=== PATIENT | male | born 1970 | race American Indian/Alaskan Native ===

== ENCOUNTER 2018-03-22 13:51 | Emergency (ER) | payer MEDICAID, OTHER, SELFPAY ==
[2018-03-22 13:57] VITALS: BP 160/113; PULSE 69; RESP 18; TEMP 36.2; O2SAT 96
--- NOTE | 2018-03-22 15:11 | ED.ABDPAIN ---
HPI - Abdominal Pain <GLADIS Aquino - Last Filed: 03/22/18 22:11> General Chief Complaint: Abdominal Pain Stated Complaint: VOMITING, BACK HURTS Time Seen by Provider: 03/22/18 15:11 Source: patient Mode of arrival: ambulatory Limitations: no limitations History of Present Illness HPI narrative: 47-year-old healthy male that is a nonsmoker here for complaint of pain to his left lower quadrant over the past couple of days. He denies any urinary symptoms. He states his last bowel movement was yesterday and was unremarkable. He has had some nausea vomiting. No fevers or chills. Otherwise positive p.o. intake. Denies any trauma to the abdomen. No flank pain. He denies any stressors or years of his discomfort. He denies any other concerns or complaints at this time. MD complaint: abdominal pain Related Data Previous Rx's Medication Instructions Recorded ondansetron 4 mg PO Q6-8H PRN #10 tab 03/22/18 Allergies Allergy/AdvReac Type Severity Reaction Status Date / Time ibuprofen [From MOTRIN] Allergy Mild HIVES Verified 03/22/18 15:43 ketorolac [From TORADOL] Allergy Mild HIVES Verified 03/22/18 15:43 Review of Systems <GLADIS Aquino - Last Filed: 03/22/18 22:11> Constitutional Denies chills, Denies fever(s), Denies lethargy and Denies weakness Eyes Denies change in vision, Denies eye discharge, Denies irritation and Denies loss of vision ENT Ears, Nose, Mouth, and Throat: Denies change in voice, Denies neck pain and Denies sore throat Cardiovascular Denies chest pain, Denies irregular heart rhythm, Denies lightheadedness, Denies palpitations, Denies dyspnea, Denies dyspnea on exertion and Denies orthopnea Respiratory Denies cough, Denies dyspnea, Denies dyspnea on exertion and Denies wheezing Gastrointestinal Gastrointestinal: Reports abdominal pain, Denies change in bowel habits, Denies diarrhea, Reports nausea and Reports vomiting Genitourinary Denies hematuria, Denies flank pain, Denies urinary incontinence and Denies urinary urgency Musculoskeletal Denies neck pain Integumentary/Breasts Denies pruritus, Denies erythema, Denies rash and Denies wounds Neurologic Denies confusion, Denies loss of vision and Denies weakness Psychiatric Denies anxiety, Denies confusion, Denies depression, Denies homicidal ideation and Denies suicidal ideation Endocrine Denies palpitations Hematologic/Lymphatic Denies easy bruising Allergic/Immunologic Denies wheezing Exam <GLADIS Aquino - Last Filed: 03/22/18 22:11> Initial Vital Signs Initial Vital Signs: Vital Signs Temperature 97.2 F L 03/22/18 13:57 Pulse Rate 69 03/22/18 13:57 Respiratory Rate 18 03/22/18 13:57 Blood Pressure 160/113 H 03/22/18 13:57 Pulse Oximetry 96 03/22/18 13:57 Const General: cooperative and well developed Nutritional Appearance: well nourished Orientation: alert, awake, oriented x3 and not confused HENMT Mouth: oral mucosae normal and moist mucous membranes Eyes Conjunctivae: conjunctivae normal Sclera: sclerae normal Pupils: PERRL EOM: EOM intact bilaterally Resp Effort & Inspection: normal respiratory effort, able to speak in complete sentences, no respiratory distress and no use of accessory muscles Auscultation: clear to auscultation bilaterally, no rales, no rhonchi and no wheezes Cardio Rate: regular rate Rhythm: regular rhythm Heart Sounds: no click, no gallops, no murmurs and no rubs Pulses: normal peripheral pulses GI Inspection: non-distended Palpation: soft, no hepatosplenomegaly, No guarding, No pulsatile mass and tender ( Tenderness left lower quadrant) Auscultation: normal bowel sounds General: No CVA tenderness Skin General: no rashes or lesions noted, No jaundice and No petechiae Neuro General: alert, oriented x3, gait normal and no focal motor deficits Speech: speech normal <Thiago Byrd DO - Last Filed: 03/23/18 09:42> Initial Vital Signs Initial Vital Signs: Vital Signs Temperature 97.2 F L 03/22/18 13:57 Pulse Rate 69 03/22/18 13:57 Respiratory Rate 18 03/22/18 13:57 Blood Pressure 160/113 H 03/22/18 13:57 Pulse Oximetry 96 03/22/18 13:57 Course <GLADIS Aquino - Last Filed: 03/22/18 22:11> Orders Ordered: Discontinued Medications Hydromorphone HCl (Dilaudid) 1 mg IV NOW ONE Stop: 03/22/18 15:34 Last Admin: 03/22/18 15:43 Dose: 1 mg Sodium Chloride (Normal Saline 0.9%) 1,000 mls @ 1,000 mls/hr IV BOLUS ONE Stop: 03/22/18 16:32 Last Infusion: 03/22/18 17:24 Dose: 0 mls/hr Admin: 03/22/18 15:43 Dose: 1,000 mls/hr Ondansetron HCl (Zofran) 4 mg IV NOW ONE Stop: 03/22/18 15:34 Last Admin: 03/22/18 15:43 Dose: 4 mg Vital Signs - 8 hr 03/22/18 16:00 03/22/18 17:00 03/22/18 17:51 Pulse Rate 69 82 85 Respiratory Rate 11 L 13 12 Blood Pressure 153/86 H Blood Pressure [Right Arm] 124/88 125/106 H Pulse Oximetry 97 99 96 <Thiago Byrd DO - Last Filed: 03/23/18 09:42> Orders Ordered: Discontinued Medications Hydromorphone HCl (Dilaudid) 1 mg IV NOW ONE Stop: 03/22/18 15:34 Last Admin: 03/22/18 15:43 Dose: 1 mg Sodium Chloride (Normal Saline 0.9%) 1,000 mls @ 1,000 mls/hr IV BOLUS ONE Stop: 03/22/18 16:32 Last Infusion: 03/22/18 17:24 Dose: 0 mls/hr Admin: 03/22/18 15:43 Dose: 1,000 mls/hr Ondansetron HCl (Zofran) 4 mg IV NOW ONE Stop: 03/22/18 15:34 Last Admin: 03/22/18 15:43 Dose: 4 mg Vital Signs - 8 hr 03/22/18 16:00 03/22/18 17:00 03/22/18 17:51 Pulse Rate 69 82 85 Respiratory Rate 11 L 13 12 Blood Pressure 153/86 H Blood Pressure [Right Arm] 124/88 125/106 H Pulse Oximetry 97 99 96 MDM - Abdominal Pain <GLADIS Aquino - Last Filed: 03/22/18 22:11> Lab Data Result diagrams: 03/22/18 15:10 03/22/18 15:10 Lab Results 03/22/18 03/22/18 03/22/18 Range/Units 15:10 15:10 15:10 WBC 9.1 (4.5-11.0) X10^3/uL RBC 5.31 (4.5-5.9) X10^6/uL Hgb 14.7 (13.5-17.5) g/dL Hct 44.5 (41-53) % MCV 83.7 (80-100) fL MCH 27.6 (26-34) PG MCHC 33.0 (30-36) % RDW 13.6 (11.6-14.8) % Plt Count 318 (150-400) X10^3/uL Neut % (Auto) 79.6 H (50-75) % Lymph % (Auto) 12.3 L (25-40) % [place] % (Auto) 5.0 (3-14) % Eos % (Auto) 2.6 (2-4) % Baso % (Auto) 0.5 (0-2) % Neut # (Auto) 7200 H (3247-8162) /uL PT 11.4 (10.1-12.7) SECONDS INR 1.0 (0.9-1.3) APTT 29 (26.4-36.2) SECONDS Sodium 146 H (137-145) mmol/L Potassium 4.2 (3.4-5.1) mmol/L Chloride 106 (98-107) mmol/L Carbon Dioxide 26 (22-32) mmol/L BUN 10 (9-20) mg/dL Creatinine 0.80 (0.66-1.25) mg/dL Estimated GFR > 60.0 (>60) mL/min BUN/Creatinine Ratio 12.5 (6-22) Glucose 107 H (70-100) mg/dL Calcium 8.9 (8.4-10.2) mg/dL Total Bilirubin 0.4 (0.2-1.3) mg/dL AST 24 (17-59) IU/L ALT 33 (21-72) IU/L Alkaline Phosphatase 88 (38-126) U/L Total Protein 8.0 (6.3-8.2) g/dL Albumin 4.4 (3.5-5.0) g/dL Globulin 3.6 (1.7-4.1) g/dL Albumin/Globulin Ratio 1.2 (1.0-2.8) Lipase 105 (23-300) U/L Point of care testing: Urine Dip Bedside Urine Glucose Negative Bedside Urine Bilirubin - Negative Bedside Urine Ketone - Negative Urine Specific [place] 1.010 Bedside Urine Occult Blood - Negative Bedside Urine pH 8.0 Bedside Urine Protein - Negative Bedside Urine Urobilinogen - Negative Bedside Urine Nitrite - Negative Bedside Urine Leukocytes - Negative Esterase Imaging Data CT scan - abdomen: Radiologist's impression: [facility] [place] [id number] CT Scan Report Signed Patient: Asif Fletcher [facility]#: [id number] : 5Acct:[id number] Age/Sex: 62 / MDate of Service: 03/22/18 Loc: ED Accession Number: [id number] Procedure: CT abdomen pelvis w con Ordering Provider: Chucho James PROCEDURE: CT ABDOMEN PELVIS W CON INDICATIONS: History metastatic lung cancer here for rlq pain TECHNIQUE: After the administration of oral and intravenous contrast, 5 mm thick sections acquired from the diaphragms to the symphysis. 5 mm thick coronal and sagittal reformats were performed. For radiation dose reduction, the following was used: automated exposure control, adjustment of mA and/or kV according to patient size. COMPARISON: [facility], CT, CHEST/ABD/PEL WITH CONTRAST, 06/29/2017, 11:57. [facility], CT, CHEST/ABDOMEN WITH CONTRAST, 06/26/2016, 13:13. [facility], CT, CHEST/ABDOMEN WITH CONTRAST, 02/11/2016, 9:15. [facility], CT, ABDOMEN/PELVIS WITH CONTRAST, 10/22/2015, 15:23. FINDINGS: Image quality: Diagnostic. ABDOMEN: Lung bases: Mild areas of parenchymal scarring are seen within the right middle lobe/right lung base, similar to previous examinations, but less pronounced on the current study. Heart size is normal. Solid organs: The liver, spleen, adrenals, kidneys, and pancreas appear to be unchanged. A simple appearing left renal cyst is again noted. Peritoneum and bowel: There is a small hiatal hernia. Otherwise, the stomach is unremarkable. The small bowel loops are nondilated. Moderate to large amount of residual stool is identified within the colon. The appendix is not definitely seen. No free fluid or loculated fluid collection is evident. There is no free air. Nodes and vessels: No retroperitoneal or mesenteric adenopathy. Aorta and inferior vena cava are normal in caliber. There is atherosclerosis of the lower abdominal aorta and iliac arteries. No occlusions or aneurysms. Bones: There is a new Schmorl's node versus superior endplate compression deformity involving the L3 vertebral body, which was not present on the examination from 06/29/17. Otherwise, the osseous structures of the abdomen are intact. PELVIS: Genitourinary: Moderate thickening of the urinary bladder wall is present. The prostate gland is not appear to be significantly enlarged. However, there are coarse calcifications present within the prostate itself. Miscellaneous: No inguinal hernias or adenopathy. No free fluid or loculated fluid collections are evident. There is no free air. Bones: No suspicious bony lesions. No acute pelvic fractures are evident. They're mild to moderate degenerative changes of the pelvic joints. IMPRESSION: 1. No evidence of metastatic disease to the abdomen or pelvis. No lymphadenopathy. 2. Thickening of the urinary bladder wall may be related to chronic bladder obstruction. Please correlate clinically to exclude cystitis. 3. Large amount of residual stool throughout the colon may represent constipation. 4. Small hiatal hernia. 5. New compression deformity versus Schmorl's node involving the superior L3 endplate. The need for better characterization utilizing MRI may be determined clinically. Dictated by: Suresh Savage M.D. on 03/22/2018 at 15:00 Approved by: Suresh Savage M.D. on 03/22/2018 at 15:09 ECG Data Interpretation: EKG shows sinus bradycardia with no ST elevation or depression. No ectopy. Ventricular rate of 57. Pr interval 144. QRS duration 94. QTC 381. MDM Narrative Medical decision making narrative: CBC and Chem panel were obtained were unremarkable. Lipase was negative. CT of the abdomen was obtained was negative for any acute findings. Urinalysis was negative for urinary tract infection. Will treat for a viral illness with Zofran to help with nausea vomiting [id number] Tylenol as needed for discomfort. Plenty of fluids and rest. Follow up with primary care provider later this week. For any worsening symptoms return to the emergency room. <Thiago Byrd, - Last Filed: 03/23/18 09:42> Lab Data Lab Results 03/22/18 03/22/1818 Range/Units 15:10 15:10 15:10 WBC 9.1 (4.5-11.0) X10^3/uL RBC 5.31 (4.5-5.9) X10^6/uL Hgb 14.7 (13.5-17.5) g/dL Hct 44.5 (41-53) % MCV 83.7 (80-100) fL MCH 27.6 (26-34) PG MCHC 33.0 (30-36) % RDW 13.6 (11.6-14.8) % Plt Count 318 (150-400) X10^3/uL Neut % (Auto) 79.6 H (50-75) % Lymph % (Auto) 12.3 L (25-40) % [place] % (Auto) 5.0 (3-14) % Eos % (Auto) 2.6 (2-4) % Baso % (Auto) 0.5 (0-2) % Neut # (Auto) 7200 H (6914-8472) /uL PT 11.4 (10.1-12.7) SECONDS INR 1.0 (0.9-1.3) APTT 29 (26.4-36.2) SECONDS Sodium 146 H (137-145) mmol/L Potassium 4.2 (3.4-5.1) mmol/L Chloride 106 (98-107) mmol/L Carbon Dioxide 26 (22-32) mmol/L BUN 10 (9-20) mg/dL Creatinine 0.80 (0.66-1.25) mg/dL Estimated GFR > 60.0 (>60) mL/min BUN/Creatinine Ratio 12.5 (6-22) Glucose 107 H (70-100) mg/dL Calcium 8.9 (8.4-10.2) mg/dL Total Bilirubin 0.4 (0.2-1.3) mg/dL AST 24 (17-59) IU/L ALT 33 (21-72) IU/L Alkaline Phosphatase 88 (38-126) U/L Total Protein 8.0 (6.3-8.2) g/dL Albumin 4.4 (3.5-5.0) g/dL Globulin 3.6 (1.7-4.1) g/dL Albumin/Globulin Ratio 1.2 (1.0-2.8) Lipase 105 (23-300) U/L Point of care testing: Urine Dip Bedside Urine Glucose Negative Bedside Urine Bilirubin - Negative Bedside Urine Ketone - Negative Urine Specific [place] 1.010 Bedside Urine Occult Blood - Negative Bedside Urine pH 8.0 Bedside Urine Protein - Negative Bedside Urine Urobilinogen - Negative Bedside Urine Nitrite - Negative Bedside Urine Leukocytes - Negative Esterase Discharge Plan Departure Patient Disposition: Home Clinical Impression: Abdominal pain, acute Discharge Date/Time: 03/22/18 17:52 Interventions: ED Discharge Assessment Last Done: 03/22/18 17:51 Instructions: DI for Abdominal Pain-Adult Activity Restrictions/Additional Instructions: laboratory results and imaging today were unremarkable. Signs and symptoms presents as a viral illness. Use [id number] Tylenol as needed for any discomfort. Zofran is prescribed to help with nausea use as directed. Follow up with her primary care provider next week for re-evaluation. Plenty of fluids and rest. For any worsening symptoms return to the emergency room. Prescriptions: New ondansetron 4 mg tablet,disintegrating 4 mg PO Q6-8H PRN (Reason: nausea and vomiting) Qty: 10 RF: 0 Referrals: Brooklyn Scott PA-C [Primary Care Provider] - <Thiago Byrd DO - Last Filed: 03/23/18 09:42> Cosign ED Attending Bryantature Attestation: I was immediately available in the department for consultation. Documentation has been reviewed. I agree with assessment and plan.
[2018-03-22 15:18] LABS: Add Manual Diff / Slide Review NO; Basophils Percent Auto 0.5 % (0-2); Eosinophils Percent Auto 2.6 % (2-4); Hematocrit 44.5 % (41-53); Hemoglobin 14.7 g/dL (13.5-17.5); Lymphocytes Percent Auto 12.3 % (25-40); Mean Corpuscular Hemoglobin 27.6 PG (26-34); Mean Corpuscular Volume 83.7 fL (80-100); Neutrophils Absolute Auto 7200 /uL (1500-7000); Neutrophils Percent Auto 79.6 % (50-75); Platelet Count 318 X10^3/uL (150-400); Red Blood Cell Count 5.31 X10^6/uL (4.5-5.9); Red Cell Distribution Width 13.6 % (11.6-14.8); White Blood Cell Count 9.1 X10^3/uL (4.5-11.0)
[2018-03-22 15:32] LABS: Prothrombin Time 11.4 SECONDS (10.1-12.7)
--- NOTE | 2018-03-22 15:33 | DI.CT.S_ITS ---
PROCEDURE: CT ABDOMEN PELVIS W CON INDICATIONS: left lower quadrant pain TECHNIQUE: After the administration of intravenous contrast, 5 mm thick sections acquired from the diaphragm to the symphysis. 5 mm coronal and sagittal reformats were acquired. For radiation dose reduction, the following was used: automated exposure control, adjustment of mA and/or kV according to patient size. COMPARISON: [facility], CT, ABDOMEN/PELVIS WITH CONTRAST, 02/09/2013, 12:11. FINDINGS: Image quality: Excellent. ABDOMEN: Lung bases: Lung bases are clear. Heart size is normal. Solid organs: Liver is normal in size and enhancement. Hepatic steatosis is seen. No discrete hepatic lesion is noted. Gallbladder is within normal limits. Biliary system is non dilated. Pancreas enhances normally. Spleen is normal in size and enhancement. No adrenal nodules. Kidneys demonstrate normal size and enhancement, without hydronephrosis. Peritoneum and bowel: Small to moderate size hiatal hernia is seen. There is no evidence of bowel obstruction. No gross abnormal bowel wall thickening or mesenteric fat stranding is seen. No free fluid or free air. Descending colon and sigmoid colon diverticulosis is seen with no CT evidence of acute diverticulitis. Appendix is visualized and is within normal limits. Nodes and vessels: No retroperitoneal or mesenteric adenopathy by size criteria. Aorta and inferior vena cava are normal in size. Miscellaneous: No ventral hernias. PELVIS: Genitourinary: There is mild diffuse bladder wall thickening. No discrete bladder wall mass. Miscellaneous: No inguinal hernias or adenopathy. Bones: No suspicious bony lesions. No vertebral body compression fractures. IMPRESSION: 1. Normal appendix. Sigmoid and descending colon diverticulosis with no CT evidence of acute diverticulitis. No bowel obstruction. No free fluid or free air. Small to moderate size hiatal hernia. 2. No renal stone hydronephrosis. Mild nonspecific bladder wall thickening, which could represent cystitis versus underdistention. 3. Hepatic steatosis. Dictated by: Nicholas Galaviz M.D. on 03/22/2018 at 16:06 Approved by: Nicholas Galaviz M.D. on 03/22/2018 at 16:16
[2018-03-22 15:35] LABS: PTT Partial Thromboplastin Tim 29 SECONDS (26.4-36.2)
[2018-03-22 15:36] LABS: Alanine Aminotransferase 33 IU/L (21-72); Albumin 4.4 g/dL (3.5-5.0); Albumin Globulin Ratio 1.2 (1.0-2.8); Alkaline Phosphatase 88 U/L (38-126); Aspartate Aminotransferase 24 IU/L (17-59); BUN Creatinine Ratio 12.5 (6-22); Bilirubin Total 0.4 mg/dL (0.2-1.3); Blood Urea Nitrogen 10 mg/dL (9-20); Calcium 8.9 mg/dL (8.4-10.2); Carbon Dioxide 26 mmol/L (22-32); Chloride 106 mmol/L (98-107); Estimated Glomerular Filt Rate > 60.0 mL/min (>60); Globulin 3.6 g/dL (1.7-4.1); Glucose 107 mg/dL (70-100); HEMOLYSIS < 15 (0-50); Lipase 105 U/L (23-300); Potassium 4.2 mmol/L (3.4-5.1); Sodium 146 mmol/L (137-145)
[2018-03-22] MEDS: HYDROMORPHONE 1 MG INJ IV (15:43)
[2018-03-22] MEDS: ONDANSETRON 4 MG/2 ML INJ IV (15:43)
[2018-03-22] MEDS: SODIUM CHLORIDE 0.9% 1,000 ML 1000 ML IV (15:43)
[2018-03-22 16:00] VITALS: BP 124/88; PULSE 69; RESP 11; O2SAT 97
[2018-03-22 17:00] VITALS: BP 125/106; PULSE 82; RESP 13; O2SAT 99
[2018-03-22 17:51] VITALS: BP 153/86; PULSE 85; RESP 12; O2SAT 96
== END 2018-03-22 17:52 | disposition home or self-care (01) ==
PROVIDERS: Emergency Provider Nurse Practitioner Family; PCP Physician Assistant
DX: R10.9 Unspecified abdominal pain (principal)
CPT/HCPCS: 36591; 74177; 80053; 81003; 83690; 85025; 85610; 85730; 93005; 93010; 96361; 96374; 96375; 99283; 99285; J1170; J2405; Q9967

== ENCOUNTER 2021-04-13 10:30 | Emergency (ER) | payer MEDICAID, OTHER, SELFPAY ==
[2021-04-13 11:23] VITALS: BP 176/96; PULSE 55; RESP 18; TEMP 36.5; O2SAT 99; BMI 34.4
--- NOTE | 2021-04-13 11:56 | ED_ITS ---
HPI - Weakness <GLADIS Maloney - Last Filed: 04/13/21 16:15> General Chief complaint: Weakness Stated complaint: Vomiting, chills, weakness Time Seen by Provider: 04/13/21 10:40 Source: patient Mode of arrival: Wheelchair History of Present Illness HPI Narrative: 30-year-old male presents to the emergency department for nausea and vomiting which started at 1:30 a.m. today. Patient reports that he was using fentanyl, and other oral opioids until last week when he was transition to Suboxone. He denies having a fever, reports that he is vaccinated x2 and pending his booster tomorrow. His sister was at his house in she does a positive for COVID so he would not another COVID test as well. Patient denies any diarrhea, shortness of breath, chest pain, difficulty breathing, runny nose, cough, sore throat or other respiratory symptom. Patient denies any blood in his emesis. Related Data Previous Rx's Medication Instructions Recorded ondansetron 4 mg disintegrating 4 mg PO Q6-8H PRN #10 tab 03/22/18 tablet ondansetron 4 mg disintegrating 4 mg PO Q8H PRN #10 tab 04/13/21 tablet Allergies Allergy/AdvReac Type Severity Reaction Status Date / Time ibuprofen [From MOTRIN] Allergy Mild HIVES Verified 03/22/18 15:43 ketorolac [From TORADOL] Allergy Mild HIVES Verified 03/22/18 15:43 Review of Systems <GLADIS Maloney - Last Filed: 04/13/21 16:15> Review of Systems Narrative: General: denies fever, chills Head/Neck: denies headache, neck pain Eyes: denies visual changes, eye pain Cardio: denies chest pain, palpitations Respiratory: denies shortness of breath, cough GI: denies abdominal pain, endorses nausea and vomiting, denies diarrhea : denies dysuria, hematuria MSK: denies joint pain, muscle weakness Skin: denies rash, itching Neuro: denies numbness, tingling Patient History <GLADIS Maloney - Last Filed: 04/13/21 16:15> Social History Smoking Status: Never smoker Smoking Status: Never smoker Substance Use Type: marijuana Exam <GLADIS Maloney - Last Filed: 04/13/21 16:15> Narrative Exam Narrative: Independently reviewed vitals signs and nursing notes. General: Awake, alert, nontoxic, no cardiorespiratory distress Head/Neck: Atraumatic, neck full range of motion Eyes: EOMI, conjunctiva normal Nose: nares patent, no rhinorrhea Mouth/Throat: moist mucus membranes, posterior pharynx normal, no oral lesions Cardio: Regular rate and rhythm, no peripheral edema, patient does not appear dehydrated, extremities are warm, heart rate low 60s. Respiratory: respirations unlabored without wheezing, stridor, or rales. No retractions. GI: Abdomen soft, nontender to palpation MSK: Moves all extremities, neurovascularly intact Skin: Normal capillary refill, no rash Neuro: Normal speech and cognition, normal gait Initial Vital Signs Initial Vital Signs: Vital Signs Temperature 97.7 F 04/13/21 11:23 Pulse Rate 55 L 04/13/21 11:23 Respiratory Rate 18 04/13/21 11:23 Blood Pressure 176/96 H 04/13/21 11:23 Pulse Oximetry 99 04/13/21 11:23 <Thiago Byrd DO - Last Filed: 04/14/21 11:21> Initial Vital Signs Initial Vital Signs: Vital Signs Temperature 97.7 F 04/13/21 11:23 Pulse Rate 55 L 04/13/21 11:23 Respiratory Rate 18 04/13/21 11:23 Blood Pressure 176/96 H 04/13/21 11:23 Pulse Oximetry 99 04/13/21 11:23 Course <GLADIS Maloney - Last Filed: 04/13/21 16:15> Orders Ordered: Discontinued Medications Ondansetron HCl (Ondansetron 4 Mg Odt) 4 mg SL NOW ONE Stop: 04/13/21 12:05 Last Admin: 04/13/21 12:21 Dose: 4 mg Documented by: ADRYAN Vital Signs Vital signs: Vital Signs - 8 hr 04/13/21 11:23 04/13/21 13:12 Temperature 97.7 F Pulse Rate 55 L 61 Respiratory Rate 18 20 Blood Pressure 176/96 H 155/76 H Pulse Oximetry 99 97 <Thiago Byrd DO - Last Filed: 04/14/21 11:21> Orders Ordered: Discontinued Medications Ondansetron HCl (Ondansetron 4 Mg Odt) 4 mg SL NOW ONE Stop: 04/13/21 12:05 Last Admin: 04/13/21 12:21 Dose: 4 mg Documented by: ADRYAN Vital Signs Vital signs: Vital Signs - 8 hr 04/13/21 11:23 04/13/21 13:12 Temperature 97.7 F Pulse Rate 55 L 61 Respiratory Rate 18 20 Blood Pressure 176/96 H 155/76 H Pulse Oximetry 99 97 MDM - Weakness <UGO MaloneyP - Last Filed: 04/13/21 16:15> Lab Data Labs: Lab Results 04/13/21 04/13/21 Range/Units 11:30 12:29 Urine Color Yellow Urine Appearance Clear Urine pH 8.5 H (4.5-8.0) Ur Specific [place]ese 1.015 (1.000-1.035) Urine Protein Trace H (Negative) Urine Glucose (UA) Negative (Negative) g/dL Urine Ketones Negative (NEGATIVE) Urine Occult Blood Negative (Negative) Urine Nitrate Negative (Negative) Urine Bilirubin Negative (NEGATIVE) Urine Urobilinogen 0.2 (0.2) E.U./dL Ur Leukocyte Esterase Negative (NEGATIVE) Urine RBC None seen (0-5/HPF) Urine WBC 0-1/hpf (0-5/HPF) Ur Squamous Epith Cells 0-1 /hpf (0-5/HPF) Amorphous Sediment 1+ Urine Bacteria None seen (None) Urine Mucus 1+ H (Negative) Ur Culture Indicated? Cult not indicated SARS-CoV-2 (PCR) Negative (Negative) [facility] Narrative Medical decision making narrative: 50-year-old male presents to the emergency department complaining of nausea and vomiting which started last night at 1:30 a.m. patient reports that he recently transition from oral opioids including fentanyl, oxycodone and others to Suboxone 1 week ago and he has had some symptoms of withdrawal. He denies any fever, cough, illness but does endorse mild dysuria. UA was negative for infection, patient was given Zofran and tolerated p.o. afterwards without difficulty or vomiting. Patient was prescribed a short course of ODT Zofran. Patient understands to follow-up with his primary care provider and his pain medication provider if he is continuing to have these symptoms. Patient is appropriate and amenable to discharge home. Vital signs are stable on repeat examination is unremarkable. Patient has been informed of results. Patient has been given strict return to ER precautions for any new or worsening symptoms. Patient understands to follow up closely with outpatient providers as instructed. Patient understands plan and agrees to discharge home. All questions and concerns answered at this time. <Thiago Byrd, DO - Last Filed: 04/14/21 11:21> Lab Data Labs: Lab Results 04/13/21 04/13/21 Range/Units 11:30 12:29 Urine Color Yellow Urine Appearance Clear Urine pH 8.5 H (4.5-8.0) Ur Specific Reese 1.015 (1.000-1.035) Urine Protein Trace H (Negative) Urine Glucose (UA) Negative (Negative) g/dL Urine Ketones Negative (NEGATIVE) Urine Occult Blood Negative (Negative) Urine Nitrate Negative (Negative) Urine Bilirubin Negative (NEGATIVE) Urine Urobilinogen 0.2 (0.2) E.U./dL Ur Leukocyte Esterase Negative (NEGATIVE) Urine RBC None seen (0-5/HPF) Urine WBC 0-1/hpf (0-5/HPF) Ur Squamous Epith Cells 0-1 /hpf (0-5/HPF) Amorphous Sediment 1+ Urine Bacteria None seen (None) Urine Mucus 1+ H (Negative) Ur Culture Indicated? Cult not indicated SARS-CoV-2 (PCR) Negative (Negative) Discharge Plan Departure Patient Disposition: Home Clinical Impression: Withdrawal symptoms, drug or narcotic Qualifiers: Substance type: opioid Qualified Code(s): F11.23 - Opioid dependence with withdrawal Vomiting Qualifiers: Vomiting type: unspecified Vomiting Intractability: non-intractable Nausea presence: with nausea Qualified Code(s): R11.2 - Nausea with vomiting, unspecified Instructions: DI for Vomiting -- Adult Activity Restrictions/Additional Instructions: *You have been diagnosed with withdrawal symptoms most likely related to your transition from fentanyl and opioids to Suboxone. Please continue on your current regimen, please continue to stay hydrated avoid other sick contacts. Thank you for being vaccinated. Please slate picker your Zofran at [facility]. We will call you if your urine is abnormal and we will call in antibiotics if necessary. I hope you feel better soon. *What to do: *Please continue to take your regular medications as directed. [x ] New medication prescriptions sent to your pharmacy: [ [facility]] [ ] New medication written as a paper prescription [ ] No new medications given *Please follow up with your primary care provider in 2-3 days, call for an appointment. Let them know you were seen in the Emergency Department and that we ask that you be seen in follow up. We will electronically transmit a record of today's note if your PCP is in our system *If you do not have a primary care provider please contact the [facility] Resource line at [phone]. They will ask some questions about your medical history and help get you set up with a doctor in the community. *Return to Emergency Department if you should have any new, worsening or concerning symptoms, such as [fever greater than 101F, chills, worsening pain, persistent vomiting or other bothersome symptoms] Prescriptions: New ondansetron 4 mg tablet,disintegrating 4 mg PO Q8H PRN (Reason: nausea and vomiting) Qty: 10 0RF No Action ondansetron 4 mg tablet,disintegrating 4 mg PO Q6-8H PRN (Reason: nausea and vomiting) Qty: 10 0RF Referrals: Brooklyn Scott PA-C [Primary Care Provider] - <Thiago Byrd DO - Last Filed: 04/14/21 11:21> [facility] ED Attending Bryantature Attestation: I was immediately available in the department for consultation. This documentation has been reviewed and I agree with assessment and plan. Supervised by Thiago Byrd DO
[2021-04-13 12:06] LABS: COVID19 -Nasal RAPID Negative (Negative)
[2021-04-13] MEDS: ONDANSETRON 4 MG ODT SL (12:21)
[2021-04-13 12:57] LABS: Appearance Urine UA CLEAR; Bilirubin Urine UA NEGATIVE (NEGATIVE); Color Urine UA YELLOW; Glucose Urine UA NEGATIVE (Negative); Ketones Urine UA NEGATIVE (NEGATIVE); Leukocyte Esterase Urine UA NEGATIVE (NEGATIVE); Nitrite Urine UA NEGATIVE (Negative); Occult Blood Urine UA NEGATIVE (Negative); Protein Urine UA TRACE (Negative); Specific Gravity Urine UA 1.015 (1.000-1.035); Urobilinogen Urine UA 0.2 E.U./dL (0.2); pH Urine UA 8.5 (4.5-8.0)
[2021-04-13 13:05] LABS: Amorphous Sediment Urine 1+; Bacteria Urine None Seen; Culture Indicated Urine Cult Not Indicated; Mucus Urine 1+ (Negative); RBC Urine None Seen (0-5/HPF); Squamous Epithelial Cell Urine 0-1 /HPF (0-5/HPF); WBC Urine 0-1/HPF (0-5/HPF)
[2021-04-13 13:12] VITALS: BP 155/76; PULSE 61; RESP 20; O2SAT 97
== END 2021-04-13 13:22 | disposition home or self-care (01) ==
PROVIDERS: Emergency Medicine; Emergency Provider Nurse Practitioner Critical Care Medicine; PCP Physician Assistant
DX: F11.23 Opioid dependence with withdrawal (principal); R11.2 Nausea with vomiting, unspecified; Z20.822 Contact with and (suspected) exposure to COVID-19
CPT/HCPCS: 81001; 87635; 99283; C9803

== ENCOUNTER 2022-02-02 12:09 | Emergency (ER) | payer MEDICAID, OTHER, SELFPAY ==
[2022-02-02] VITALS (29 sets, daily range): BP systolic 136–190; BP diastolic 69–99; PULSE 47–88; RESP 14–50; TEMP 36.4; O2SAT 97–100; BMI 32.1
[2022-02-02] MEDS: NALOXONE 1 MG/ML SYRINGE 0.5 MG IV (12:17)
[2022-02-02] MEDS: ONDANSETRON 4 MG/2 ML INJ IV (12:21)
--- NOTE | 2022-02-02 12:37 | ED.OVERDOSE ---
HPI - Overdose General Chief Complaint: Toxicology Problem Stated Complaint: withdrawal Time Seen by Provider: 02/02/22 12:17 Source: EMS Mode of arrival: EMS History of Present Illness HPI Narrative: Patient is a 51-year-old male history of opiate and fentanyl abuse also going to [facility] presenting today what was thought to be withdrawal. Reports that he smoked Fentanyl around 4:00 a.m. and then took his Suboxone at 9:00 a.m. EMS reports that he required a sternal rub in route. He is able to answer some questions he wakes up but does drift off to sleep. Related Data Previous Rx's Medication Instructions Recorded ondansetron 4 mg disintegrating 4 mg PO Q6-8H PRN nausea and 03/22/18 tablet vomiting #10 tabs ondansetron 4 mg disintegrating 4 mg PO Q8H PRN nausea and 04/13/21 tablet vomiting #10 tabs Allergies Allergy/AdvReac Type Severity Reaction Status Date / Time ibuprofen [From MOTRIN] Allergy Mild HIVES Verified 02/02/22 12:28 ketorolac [From TORADOL] Allergy Mild HIVES Verified 02/02/22 12:28 Review of Systems Review of Systems ROS Unobtainable: All systems reviewed & are unremarkable except as noted in HPI and below Patient History Social History Smoking Status: Never smoker Smoking Status: Never smoker Substance Use Type: marijuana and painkillers Exam Initial Vital Signs Initial Vital Signs: Vital Signs Temperature 97.5 F L 02/02/22 12:20 Pulse Rate 56 L 02/02/22 12:20 Respiratory Rate 14 02/02/22 12:20 Blood Pressure 173/90 H 02/02/22 12:20 Pulse Oximetry 100 02/02/22 12:20 Oxygen Delivery Method 02/02/22 12:20 GENERAL: Drowsy 51-year-old male and in no acute distress. HEENT: Head atraumatic,EOMI, pupils reactive, face symmetric, moist mucous membranes CARDIOVASCULAR: Regular rate and rhythm without murmurs, rubs or gallops. RESPIRATORY: Breath sounds equal bilaterally, no wheezes rales or rhonchi. ABDOMEN: Soft, nontender. Normoactive bowel sounds all 4 quadrants. No guarding or rebound. EXTREMITIES: Normal range of motion, no clubbing or edema. Neurovascularly intact NEUROLOGICAL: Responsive sometimes 2 pain and sometimes to voice moving all extremities. SKIN: Warm, dry, no laceration, no petechiae, no rashes or lesions. Course Orders Ordered: ED Orders 02/02/22 12:10 Acetaminophen Stat CBC Auto Diff [Complete Blood Count AUTO DIFF] Stat CMP [Comprehensive Metabolic Panel] Stat ETOH [Ethanol (ETOH)] Stat Lactate (Lactic Acid) Stat Salicylate Stat 02/02/22 12:38 EKG-12 Lead Stat 02/02/22 12:41 CT head/brain wo con Stat 02/02/22 13:10 Urine Drug Screen, Rapid Stat 02/02/22 16:45 Consult to [facility] - Licensed Practical Nurse Clinic Nurse Stat Discontinued Medications Lorazepam (Lorazepam 2 Mg/Ml Inj) 0.5 mg IV NOW ONE Stop: 02/02/22 12:47 Last Admin: 02/02/22 12:53 Dose: 0.5 mg Documented By: NICHOLAS Lorazepam (Lorazepam 2 Mg/Ml Inj) 1 mg IV NOW ONE Stop: 02/02/22 12:55 Last Admin: 02/02/22 13:15 Dose: 1 mg Documented By: NICHOLAS(2) Metoclopramide HCl (Metoclopramide 10 Mg/2 Ml Inj) 10 mg IV NOW ONE Stop: 02/02/22 15:09 Last Admin: 02/02/22 15:18 Dose: 10 mg Documented By: LENCHO Naloxone HCl (Naloxone 1 Mg/Ml Syringe) 0.5 mg IV NOW ONE Stop: 02/02/22 12:25 Last Admin: 02/02/22 12:17 Dose: 0.5 mg Documented By: LENCHO Naloxone HCl (Naloxone 4 Mg Nasal [place]) 4 mg [facility] ONE Stop: 02/02/22 17:29 Last Admin: 02/02/22 17:32 Dose: 4 mg Documented By: NICHOLAS(2) Ondansetron HCl (Ondansetron 4 Mg/2 Ml Inj) 4 mg IV NOW ONE Stop: 02/02/22 12:18 Last Admin: 02/02/22 12:21 Dose: 4 mg Documented By: JASBIR Pantoprazole Sodium (Pantoprazole 40 Mg Vial) 40 mg IV NOW ONE Stop: 02/02/22 15:09 Last Admin: 02/02/22 15:18 Dose: 40 mg Documented By: LENCHO Vital Signs Vital signs: Vital Signs - 8 hr 02/02/22 12:20 02/02/22 13:00 02/02/22 13:27 Temperature 97.5 F L Pulse Rate 56 L 48 L 52 L Respiratory Rate 14 25 H Blood Pressure 173/90 H 173/76 H 171/90 H Pulse Oximetry 100 100 100 Oxygen Delivery Method Room Air Room Air Room Air 02/02/22 13:04 02/02/22 13:10 02/02/22 13:10 Temperature Pulse Rate 50 L 51 L Respiratory Rate Blood Pressure 165/76 H Pulse Oximetry 100 100 Oxygen Delivery Method 02/02/22 13:20 02/02/22 13:20 02/02/22 13:30 Temperature Pulse Rate 47 L 54 L Respiratory Rate 26 H Blood Pressure 171/90 H Pulse Oximetry 100 100 Oxygen Delivery Method 02/02/22 13:31 02/02/22 13:31 02/02/22 14:00 Temperature Pulse Rate 53 L 53 L Respiratory Rate Blood Pressure 177/86 H 136/90 Pulse Oximetry 99 Oxygen Delivery Method Room Air 02/02/22 13:41 02/02/22 13:41 02/02/22 13:59 Temperature Pulse Rate 57 L 57 L Respiratory Rate 24 22 Blood Pressure 182/88 H Pulse Oximetry 100 100 Oxygen Delivery Method 02/02/22 13:59 02/02/22 14:00 02/02/22 14:17 Temperature Pulse Rate 69 49 L Respiratory Rate 24 Blood Pressure 136/90 Pulse Oximetry 100 100 Oxygen Delivery Method 02/02/22 14:17 02/02/22 14:53 02/02/22 15:02 Temperature Pulse Rate 50 L 50 L Respiratory Rate Blood Pressure 190/84 H 158/79 H 170/99 H Pulse Oximetry 97 100 Oxygen Delivery Method Room Air Room Air 02/02/22 14:21 02/02/22 14:21 02/02/22 14:32 Temperature Pulse Rate 56 L Respiratory Rate Blood Pressure 190/89 H 180/85 H Pulse Oximetry 100 Oxygen Delivery Method 02/02/22 14:32 02/02/22 14:41 02/02/22 14:41 Temperature Pulse Rate 58 L 52 L Respiratory Rate Blood Pressure 148/69 H Pulse Oximetry 100 100 Oxygen Delivery Method 02/02/22 14:51 02/02/22 14:51 02/02/22 15:00 Temperature Pulse Rate 78 74 Respiratory Rate Blood Pressure 158/79 H Pulse Oximetry 99 100 Oxygen Delivery Method 02/02/22 15:01 02/02/22 15:01 02/02/22 15:30 Temperature Pulse Rate 74 55 L Respiratory Rate 25 H Blood Pressure 170/99 H Pulse Oximetry 100 99 Oxygen Delivery Method 02/02/22 15:36 02/02/22 15:36 02/02/22 15:50 Temperature Pulse Rate 76 51 L Respiratory Rate 18 Blood Pressure 174/99 H Pulse Oximetry 99 100 Oxygen Delivery Method Room Air 02/02/22 15:50 02/02/22 16:00 02/02/22 16:01 Temperature Pulse Rate 59 L 58 L Respiratory Rate 22 50 H Blood Pressure 170/79 H Pulse Oximetry 100 99 Oxygen Delivery Method 02/02/22 16:01 02/02/22 16:30 02/02/22 16:31 Temperature Pulse Rate 52 L 54 L Respiratory Rate 19 Blood Pressure 172/86 H Pulse Oximetry 100 99 Oxygen Delivery Method 02/02/22 16:31 02/02/22 17:00 02/02/22 17:03 Temperature Pulse Rate 88 Respiratory Rate Blood Pressure 149/75 H 138/76 Pulse Oximetry 100 Oxygen Delivery Method 02/02/22 17:03 Temperature Pulse Rate 66 Respiratory Rate 22 Blood Pressure Pulse Oximetry 97 Oxygen Delivery Method MDM - Overdose Lab Data Result diagrams: 02/02/22 12:10 02/02/22 12:10 Labs: Lab Results 02/02/22 02/02/22 02/02/22 Range/Units 12:10 12:10 12:10 WBC 7.5 (4.5-11.0) X10^3/uL RBC 5.03 (4.5-5.9) X10^6/uL Hgb 13.3 L (13.5-17.5) g/dL Hct 40.3 L (41-53) % MCV 80.1 (80-100) fL MCH 26.4 (26-34) PG MCHC 32.9 (30-36) % RDW 15.5 H (11.6-14.8) % Plt Count 263 (150-400) X10^3/uL Neut % (Auto) 78.2 H (50-75) % Lymph % (Auto) 13.8 L (25-40) % [place] % (Auto) 5.7 (3-14) % Eos % (Auto) 1.3 L (2-4) % Baso % (Auto) 1.0 (0-2) % Neut # (Auto) 5800 (6899-6488) /uL Lymph # (Auto) 1000 L (0072-4183) /uL [place] # (Auto) 400 (0-900) /uL Eos # (Auto) 100 (0-450) /uL Baso # (Auto) 100 (0-100) /uL Sodium 140 (137-145) mmol/L Potassium 3.4 (3.4-5.1) mmol/L Chloride 103 (98-107) mmol/L Carbon Dioxide 25 (22-32) mmol/L BUN 12 (9-20) mg/dL Creatinine 0.70 (0.66-1.25) mg/dL Estimated GFR > 60 (>60) mL/min BUN/Creatinine Ratio 17.1 (6-22) Glucose 108 H (70-100) mg/dL Lactate 1.5 (0.7-2.1) mmol/L Calcium 9.3 (8.4-10.2) mg/dL Total Bilirubin 0.5 (0.2-1.3) mg/dL AST 23 (17-59) IU/L ALT 17 (<50) IU/L Alkaline Phosphatase 92 (38-126) U/L Total Protein 8.9 H (6.3-8.2) g/dL Albumin 4.6 (3.5-5.0) g/dL Globulin 4.3 H (1.7-4.1) g/dL Albumin/Globulin Ratio 1.1 (1.0-2.8) Salicylates < 1.0 (<20) mg/dL U Opiates 300ng/mL cut (Negative) Ur Oxycodone Screen (Negative) Urine Methadone Screen (Negative) Acetaminophen < 10 (10-30) ug/mL Ur Barbiturates Screen (Negative) U Tricyclic Antidepress (Negative) Ur Phencyclidine Scrn (Negative) Ur Amphetamines Screen (Negative) U Methamphetamines Scrn (Negative) Ur MDMA Scrn (Ecstasy) (Negative) U Benzodiazepines Scrn (Negative) Urine Cocaine Screen (Negative) U Marijuana (THC) Screen (Negative) Ethyl Alcohol < 10 ( - 10) mg/dL 02/02/22 Range/Units 13:10 WBC (4.5-11.0) X10^3/uL RBC (4.5-5.9) X10^6/uL Hgb (13.5-17.5) g/dL Hct (41-53) % MCV (80-100) fL MCH (26-34) PG MCHC (30-36) % RDW (11.6-14.8) % Plt Count (150-400) X10^3/uL Neut % (Auto) (50-75) % Lymph % (Auto) (25-40) % [place] % (Auto) (3-14) % Eos % (Auto) (2-4) % Baso % (Auto) (0-2) % Neut # (Auto) (2621-4893) /uL Lymph # (Auto) (7373-6010) /uL [place] # (Auto) (0-900) /uL Eos # (Auto) (0-450) /uL Baso # (Auto) (0-100) /uL Sodium (137-145) mmol/L Potassium (3.4-5.1) mmol/L Chloride (98-107) mmol/L Carbon Dioxide (22-32) mmol/L BUN (9-20) mg/dL Creatinine (0.66-1.25) mg/dL Estimated GFR (>60) mL/min BUN/Creatinine Ratio (6-22) Glucose (70-100) mg/dL Lactate (0.7-2.1) mmol/L Calcium (8.4-10.2) mg/dL Total Bilirubin (0.2-1.3) mg/dL AST (17-59) IU/L ALT (<50) IU/L Alkaline Phosphatase (38-126) U/L Total Protein (6.3-8.2) g/dL Albumin (3.5-5.0) g/dL Globulin (1.7-4.1) g/dL Albumin/Globulin Ratio (1.0-2.8) Salicylates (<20) mg/dL U Opiates 300ng/mL cut Negative (Negative) Ur Oxycodone Screen Negative (Negative) Urine Methadone Screen Negative (Negative) Acetaminophen (10-30) ug/mL Ur Barbiturates Screen Negative (Negative) U Tricyclic Antidepress Negative (Negative) Ur Phencyclidine Scrn Negative (Negative) Ur Amphetamines Screen Negative (Negative) U Methamphetamines Scrn Negative (Negative) Ur MDMA Scrn (Ecstasy) Negative (Negative) U Benzodiazepines Scrn Negative (Negative) Urine Cocaine Screen Negative (Negative) U Marijuana (THC) Screen Positive H (Negative) Ethyl Alcohol ( - 10) mg/dL Imaging Data CT scan - head: Radiologist's Impression: [address] [address] [address] Scan Report Signed Patient: Faisal Slois MR#: [id number] : 1970 Acct:[id number] Age/Sex: 51 / M Date of Service: 02/02/22 Loc: ED Accession Number: [id number] ?? Procedure: CT head/brain wo con Ordering Provider: Karina Juarez D.O. PROCEDURE:? CT HEAD/BRAIN WO CON ? INDICATIONS:? Decreased mental status ? TECHNIQUE:? Noncontrast 4.5 mm thick angled axial sections acquired from the foramen magnum to the vertex, with coronal and sagittal reformats.? For radiation dose reduction, the following was used:? automated exposure control, adjustment of mA and/or kV according to patient size.? ? COMPARISON:? None. ? FINDINGS:? Image quality:? Excellent.? ? CSF spaces:? Basal cisterns are patent.? No extra-axial fluid collections.? Ventricles are normal in size and shape.? ? Brain:? No midline shift.? No intracranial masses or hemorrhage.? [place]-white matter interface is normal.? ? Skull and face:? Calvarium and visualized facial bones are intact, without suspicious lesions.? ? Sinuses:? Visualized sinuses and mastoids are clear.? ? IMPRESSION:? No acute finding. ? ? Dictated by: Billy Rodarte M.D. on 02/02/2022 at 14:51 ? ? Approved by: Billy Rodarte M.D. on 02/02/2022 at 14:55 ? ECG Data Interpretation: Sinus rhythm rate 48 FL interval 174 QRS 90 QTC is [address] changes T-wave inversions similar to previous dated [facility] Narrative Medical decision making narrative: Patient becoming intermittently unresponsive needing sternal rub he is given a small dose of Narcan which immediately caused him to vomit and shake. He was given Ativan to help combat the vomiting and the shaking. However hours in the emergency department he seems to have stabilized eating food. His probable opiate overdose. He is set up with [facility] he was seen by social work. At this time he is back to his baseline. Both patient and girlfriend are ready to go home. Naloxone at Discharge Patient criteria for naloxone at discharge: Already has reversal meds Discharge Plan Departure Patient Disposition: Home Clinical Impression: Opioid overdose Instructions: DI for Opioid Use Disorder, Naloxone for Opiate Overdose - [facility] Activity Restrictions/Additional Instructions: *You have been diagnosed with opiate overdose *What to do: Stop using fentanyl *Continue to take medications as directed Use Narcan if needed *Follow up with your primary care provider in 2-3 days or call [phone] *Return to ER if you should have any new, worsening or concerning symptoms Prescriptions: No Action ondansetron 4 mg tablet,disintegrating 4 mg PO Q8H PRN (Reason: nausea and vomiting) Qty: 10 0RF ondansetron 4 mg tablet,disintegrating 4 mg PO Q6-8H PRN (Reason: nausea and vomiting) Qty: 10 0RF Referrals: Brooklyn Scott PA-C [Primary Care Provider] - Visit Report Forms: Patient Portal/API
[2022-02-02 12:40] LABS: Add Manual Diff / Slide Review NO; Basophils Absolute Auto 100 /uL (0-100); Eosinophils Absolute Auto 100 /uL (0-450); Eosinophils Percent Auto 1.3 % (2-4); Hematocrit 40.3 % (41-53); Hemoglobin 13.3 g/dL (13.5-17.5); Lymphocytes Absolute Auto 1000 /uL (1100-4500); Lymphocytes Percent Auto 13.8 % (25-40); Mean Corpuscular HGB Conc 32.9 % (30-36); Mean Corpuscular Hemoglobin 26.4 PG (26-34); Mean Corpuscular Volume 80.1 fL (80-100); Monocytes Absolute Auto 400 /uL (0-900); Monocytes Percent Auto 5.7 % (3-14); Neutrophils Absolute Auto 5800 /uL (1500-7000); Neutrophils Percent Auto 78.2 % (50-75); Platelet Count 263 X10^3/uL (150-400); Red Blood Cell Count 5.03 X10^6/uL (4.5-5.9); Red Cell Distribution Width 15.5 % (11.6-14.8); White Blood Cell Count 7.5 X10^3/uL (4.5-11.0)
--- NOTE | 2022-02-02 12:41 | DI.CT.S_ITS ---
PROCEDURE: CT HEAD/BRAIN WO CON INDICATIONS: Decreased mental status TECHNIQUE: Noncontrast 4.5 mm thick angled axial sections acquired from the foramen magnum to the vertex, with coronal and sagittal reformats. For radiation dose reduction, the following was used: automated exposure control, adjustment of mA and/or kV according to patient size. COMPARISON: None. FINDINGS: Image quality: Excellent. CSF spaces: Basal cisterns are patent. No extra-axial fluid collections. Ventricles are normal in size and shape. Brain: No midline shift. No intracranial masses or hemorrhage. [place]-white matter interface is normal. Skull and face: Calvarium and visualized facial bones are intact, without suspicious lesions. Sinuses: Visualized sinuses and mastoids are clear. IMPRESSION: No acute finding. Dictated by: Billy Rodarte M.D. on 02/02/2022 at 14:51 Approved by: Billy Rodarte M.D. on 02/02/2022 at 14:55
[2022-02-02 12:45] LABS: Acetaminophen < 10 ug/mL (10-30); Alanine Aminotransferase 17 IU/L (<50); Albumin 4.6 g/dL (3.5-5.0); Albumin Globulin Ratio 1.1 (1.0-2.8); Alkaline Phosphatase 92 U/L (38-126); Aspartate Aminotransferase 23 IU/L (17-59); BUN Creatinine Ratio 17.1 (6-22); Bilirubin Total 0.5 mg/dL (0.2-1.3); Blood Urea Nitrogen 12 mg/dL (9-20); Calcium 9.3 mg/dL (8.4-10.2); Carbon Dioxide 25 mmol/L (22-32); Chloride 103 mmol/L (98-107); Estimated Glomerular Filt Rate > 60 mL/min (>60); Ethanol (ETOH) < 10 mg/dL; Globulin 4.3 g/dL (1.7-4.1); Glucose 108 mg/dL (70-100); HEMOLYSIS < 15 (0-50); Lactate (Lactic Acid) 1.5 mmol/L (0.7-2.1); Potassium 3.4 mmol/L (3.4-5.1); Salicylate < 1.0 mg/dL (<20); Sodium 140 mmol/L (137-145); Total Protein 8.9 g/dL (6.3-8.2)
[2022-02-02] MEDS: LORazepam 2 MG/ML INJ 0.5 MG IV (12:53)
[2022-02-02] MEDS: LORazepam 2 MG/ML INJ 1 MG IV (13:15)
[2022-02-02 13:26] LABS: UR Morphine/Opiate cutoff 300 Negative (Negative); Ur Creatinine Normal (Normal); Ur Specific Gravity Normal (Normal); Urine Amphetamines Negative (Negative); Urine Barbiturates Negative (Negative); Urine Benzodiazepines Negative (Negative); Urine Cocaine Negative (Negative); Urine MDMA Negative (Negative); Urine Methadone Negative (Negative); Urine Methamphetamines Negative (Negative); Urine Oxycodone Negative (Negative); Urine Phencyclidine Negative (Negative); Urine Tetrahydrocannabinol Positive (Negative); Urine Tricyclic Antidepressant Negative (Negative); Urine pH Normal (Normal)
--- NOTE | 2022-02-02 13:41 | PC.NURSE ---
pt reports he snorted fentanyl. arrived and was given narcan iv. pt has intermittent periods of screaming. saying he can't breath. anxious. emotional support . all of staff in the room. etco2 and all vital signs stable . MD aware and at bedside too.
--- NOTE | 2022-02-02 14:45 | PC.NURSE ---
Patient continues to get up out of bed without warning or asking for help. When up patient has complaints about feet and legs cramping up. Patient is able to walk but does have moments of an unsteady gait. RN has been notified.
[2022-02-02] MEDS: METOCLOPRAMIDE 10 MG/2 ML INJ IV (15:18)
[2022-02-02] MEDS: PANTOPRAZOLE 40 MG VIAL IV (15:18)
--- NOTE | 2022-02-02 17:03 | CM.SWNOTE ---
[facility] ED Assessment Pt is a 51 year old male who history of opiate and fentanyl abuse presented to ED with symptoms of withdrawal. Pt has Medicaid and [employer] through [facility]. Pt reports that went to his appointment at [facility] this morning to get his suboxone and then took 1/2 a blue, which SW confirmed is fentanyl. Pt reports that he just started suboxone treatment this morning and does not want any further resources. Pt declines resources for local meetings. Pt reports that he lives with his girlfriend and she can help monitor him this evening. Pt's gf is coming to pick pt up from the ED shortly. Plan: Pt will dc home with no further resources from [facility]. JUANA Unger
[2022-02-02] MEDS: NALOXONE 4 MG NASAL SPRAY MISC (17:32)
== END 2022-02-02 17:37 | disposition home or self-care (01) ==
PROVIDERS: Emergency Provider Emergency Medicine; PCP Physician Assistant
DX: T40.2X1A Poisoning by other opioids, accidental (unintentional), initial encounter (principal)
CPT/HCPCS: 70450; 80053; 80305; 80320; 80329; 83605; 85025; 93005; 96374; 96375; 96376; 99284; A9270; C9113; G0480; J2060; J2310; J2405; J2765